=== PATIENT | female | born 1980 | race Caucasian/White ===

== ENCOUNTER 2018-10-05 15:32 | Emergency (ER) | payer OTHER ==
[~2018-10-05] VITALS: Ht 165.1 cm; Wt 74.8 kg
[2018-10-05 16:38] VITALS: BP 120/76
--- NOTE | 2018-10-05 17:00 | NUR ---
Patient discharged to home in stable condition. Written and verbal after care instructions given. Patient verbalizes understanding of instruction.
== END 2018-10-05 17:07 | disposition home or self-care (01) ==
LOC: ER 15:40
DX: J02.8 Acute pharyngitis due to other specified organisms (principal); B97.89 Other viral agents as the cause of diseases classified elsewhere; B95.0 Streptococcus, group A, as the cause of diseases classified elsewhere
CPT/HCPCS: 86403-TC; 87070-TC